=== PATIENT | male | born 1975 | race African-American/Black ===

== ENCOUNTER 2018-03-15 21:02 | Emergency (ER) | payer BC | END 2018-03-15 21:31 | LOC: ERS 21:02 | DX: Z02.89 Encounter for other administrative examinations (principal); I10 Essential (primary) hypertension; Z79.899 Other long term (current) drug therapy | CPT/HCPCS: 99283 ==

== ENCOUNTER 2018-04-18 22:09 | Emergency (ER) | payer BC, OTHER ==
--- NOTE | 2018-04-18 23:19 | CT ---
HEAD CT WITHOUT CONTRAST 04/18/18 COMPARISON: None. HISTORY: Injury, trauma, pain. TECHNIQUE: Axial CT imaging at 5 mm intervals from vertex through skull base without contrast. FINDINGS: There is soft tissue swelling in the left periorbital region. There is a questionable subtle medial o rbital wall fracture on the left. There is partial opacification of the ethmoid air cells and the max illary sinus on the left. There is no displaced calvarial fracture. No intracranial hemorrhage, midli ne shift, mass effect or ventricular enlargement. IMPRESSION: Left periorbital soft tissue swelling. Question subtle fracture involving the medial orbital wall on the left. Followup CT examination of the facial bones advised. POS: VICTOR MANUEL
--- NOTE | 2018-04-18 23:35 | CT ---
CERVICAL SPINE CT WITHOUT CONTRAST 04/18/18 COMPARISON: None. HISTORY: Injury, trauma, pain. TECHNIQUE: Axial CT imaging obtained at 2.5 mm intervals from skull base through the lung apices without contras t. Coronal and sagittal reformatted imaging obtained. FINDINGS: The C1 ring is intact. There is mild degenerative change at the atlantoaxial interspace. Craniocervical and cervicothoracic junctions appear intact. Occipital condyles, dens, and C1-2 articulation appear within normal limits. Prevertebral soft tissues within normal limits. No anterolisthesis or retrolisthesis is noted within the cervical spine. Imaged lung apices unremarkable. No displaced fracture or evidence of dislocation is appreciated. IMPRESSION: No acute osseous abnormality. POS: VICTOR MANUEL
--- NOTE | 2018-04-18 23:50 | CT ---
CT FACIAL BONES 04/18/18 COMPARISON: None. HISTORY: Injury, trauma, pain. TECHNIQUE: Axial CT imaging obtained at 2.5 mm intervals through the facial bones with coronal and sagittal refo rmatted imaging. FINDINGS: There is periorbital soft tissue swelling on the left with soft tissue swelling superior to, inferior to and medial to the left orbit. Obliquely oriented bilateral nasal bone fractures, mildly displaced on the left. No evidence for zygomatic arch fracture or pterygoid plate fracture on either side. Partial opacification of bilateral ethmoid air cells, left greater than right. Neither temporomandibular joint appears dislocated. There is no mandibular fracture seen. There is a subtle medial orbital wall fracture on the left with a focus of intraorbital gas identifie d inferiorly/medially on coronal image 32. There is mild left sided proptosis and there is mild stran ding of the extraconal fat medially on the left. No evidence for a medial orbital wall fracture on the right. There is no evidence for an orbital floo r fracture on either side. Age indeterminate posterior maxillary wall fracture noted on the right. IMPRESSION: Left periorbital soft tissue swelling with mild left sided proptosis. Bilateral nasal bone fractures are noted and there is a subtle fracture of the medial orbital wall on the left. POS: VICTOR MANUEL
== END 2018-04-18 23:39 | disposition home or self-care (01) ==
LOC: ERS 22:09
DX: S02.82XA Fracture of other specified skull and facial bones, left side, initial encounter for closed fracture (principal); S00.83XA Contusion of other part of head, initial encounter; S00.212A Abrasion of left eyelid and periocular area, initial encounter; I10 Essential (primary) hypertension; F10.10 Alcohol abuse, uncomplicated; Z79.899 Other long term (current) drug therapy; Y04.8XXA Assault by other bodily force, initial encounter
CPT/HCPCS: 70450; 70486; 72125